=== PATIENT | female | born 1990 | race Caucasian/White ===

== ENCOUNTER 2020-11-08 02:50 | Emergency (ER) | payer OTHER ==
[~2020-11-08] VITALS: Ht 165.1 cm; Wt 68.0 kg
[2020-11-08 02:56] VITALS: BP 109/72
[2020-11-08] MEDS ORDERED: KLONOPIN1 MG PO ×3 (03:01→03:40)
[2020-11-08] MEDS ORDERED: PROPRANOLOL 1010 M1 PO (03:02)
== END 2020-11-08 03:44 | disposition home or self-care (01) ==
LOC: ER 02:50
DX: F41.9 Anxiety disorder, unspecified (principal); Z76.0 Encounter for issue of repeat prescription; Z98.890 Other specified postprocedural states; Z79.899 Other long term (current) drug therapy; Z88.5 Allergy status to narcotic agent; Z88.0 Allergy status to penicillin

== ENCOUNTER 2020-11-26 06:34 | Emergency (ER) | payer OTHER ==
[~2020-11-26] VITALS: Ht 165.1 cm; Wt 68.0 kg
[~2020-11-26 06:34] MED LIST: KLONOPIN1 MG PO; PROPRANOLOL 1010 M1 PO
[2020-11-26 07:38] LABS: ABSOLUTE NEUTROPHILS 5.7 thou/uL (1.4-8.2); BASOPHILS 0.6 % (0.0-2.0); EOSINOPHILS 1.8 % (0.0-3.0); HEMATOCRIT 36.2 % (37.0-47.0); LYMPHOCYTES 30.7 % (24.0-44.0); MCH 29.6 pg (26.0-34.0); MCHC 33.1 g/dL (28.0-37.0); MCV 89.6 fL (80.0-100.0); MONOCYTES 8.7 % (1.0-8.0); PLATELET COUNT 307 thou/uL (150-400); POLYS 58.2 % (36.0-66.0); RBC 4.04 mil/uL (4.20-5.00); RDW 13.8 % (10.5-14.5); WBC 9.7 thou/uL (4.0-11.0)
[2020-11-26 08:06] LABS: ALBUMIN 3.2 g/dL (3.4-5.0); CALCIUM 7.4 mg/dL (8.5-10.1); CREATININE 0.5 mg/dL (0.6-1.0); TOTAL BILIRUBIN 0.3 mg/dL (0.2-1.0)
[2020-11-26 08:11] LABS: POTASSIUM 2.3 mmol/L (3.5-5.1)
[2020-11-26 08:27] LABS: TOTAL PROTEIN 6.1 g/dL (6.4-8.2)
[2020-11-26 09:00] VITALS: BP 103/72
--- NOTE | 2020-11-26 13:54 | EKG ---
[address] [address] ELECTROCARDIOGRAM REPORT Name: BLAIR AMAYA Room #: [facility] Mena#: [id number] Admission: 11/26/20 Attend Phys: Discharge: 11/26/20 Date of : [birth year] Report #: [id number] [facility] ED Test Date: 2020-11-26 Test Time: 06:40:20 Pat Name: BLAIR AMAYA Department: Room: Gender: F [employer] Erector: DEE : 1990 Requested By: Zak Medina Order Number: [id number] MD: Guanaco Mendoza Measurements Intervals [place] Rate: 115 P: 77 ND: 136 QRS: 71 QRSD: 82 T: -20 QT: 317 QTc: 439 Interpretive Statements Sinus tachycardia Borderline repolarization abnormality No previous ECG available for comparison Electronically Signed On 11-26-2020 13:54:06 CDT by Guanaco Mendoza [email or web address] <ELECTRONICALLY SIGNED> By: Guanaco Mendoza MD, [facility] 11/26/20 1354 [id number] 0640 Guanaco Mendoza MD, FACC /EPI
== END 2020-11-26 09:35 | disposition home or self-care (01) ==
LOC: ER 06:34
PROVIDERS: Emergency Medicine
DX: R07.89 Other chest pain (principal); E87.6 Hypokalemia; F41.9 Anxiety disorder, unspecified; I25.2 Old myocardial infarction; E78.5 Hyperlipidemia, unspecified; I10 Essential (primary) hypertension; E11.9 Type 2 diabetes mellitus without complications; Z98.890 Other specified postprocedural states; Z79.899 Other long term (current) drug therapy; Z88.5 Allergy status to narcotic agent; Z88.0 Allergy status to penicillin; Z87.891 Personal history of nicotine dependence

== ENCOUNTER 2021-04-26 20:32 | Emergency (ER) | payer OTHER ==
[~2021-04-26] VITALS: Ht 165.1 cm; Wt 63.5 kg
[2021-04-26] MEDS ORDERED: KEPPRA750 MG PO ×2 (20:43→21:25)
[2021-04-26] MEDS ORDERED: CLONAZEPAM 0.50.5 M1 PO (21:25)
[2021-04-26 21:43] VITALS: BP 106/72
[2021-04-27] MEDS ORDERED: KEPPRA750 MG PO (14:04)
[2021-04-27] MEDS ORDERED: CLONAZEPAM 0.50.5 M1 PO (14:04)
== END 2021-04-26 21:43 | disposition home or self-care (01) ==
LOC: ER 20:32
DX: R56.9 Unspecified convulsions (principal); Z76.0 Encounter for issue of repeat prescription; F41.9 Anxiety disorder, unspecified; Z98.890 Other specified postprocedural states; Z79.899 Other long term (current) drug therapy; Z88.5 Allergy status to narcotic agent; Z88.0 Allergy status to penicillin

== ENCOUNTER 2021-04-28 23:39 | Emergency (ER) | payer OTHER ==
[~2021-04-28] VITALS: Ht 165.1 cm; Wt 63.5 kg
[~2021-04-28 23:39] MED LIST changes: +CLONAZEPAM 0.50.5 M1 PO; +KEPPRA750 MG PO
[2021-04-29 00:58] VITALS: BP 102/56
== END 2021-04-29 00:58 | disposition home or self-care (01) ==
LOC: ER 23:39
DX: R56.9 Unspecified convulsions (principal); F41.9 Anxiety disorder, unspecified; Z79.899 Other long term (current) drug therapy; Z88.0 Allergy status to penicillin; Z88.5 Allergy status to narcotic agent

== ENCOUNTER 2021-04-29 20:23 | Emergency (ER) | payer OTHER ==
[~2021-04-29] VITALS: Ht 165.1 cm; Wt 63.5 kg
--- NOTE | ~2021-04-29 | EMS ---
[address] [address] EMS Patient Care Report Name: BLAIR DENSON Room #: [facility] TERESA Mena#: [id number] Admission: 04/29/21 Attend Phys: Discharge: 04/29/21 Date of : [birth year] Report #: [id number] THIS REPORT FOR: //name// Report Transmitted: 04/29/2021 21:15 EMS Care Summary [facility] MED-ACT Incident [id number] @ 04/29/2021 19:47 Incident Location [address] [place] [address] Patient BLAIR DENSON Female, 30 Years 1990 Patient Address [address] [place] [address] Patient History Epilepsy,Anxiety Disorder (Panic Attacks),Anxiety, Patient Allergies Penicillin allergy,Morphine, Patient Medications Keppra, Clonazepam, Chief Complaint "feeling like I'm going to have a seizure" Disposition Transported No Lights/[place] Reason Convulsions/Seizure Transported To [facility] Narrative M1141 called to above address for C3 Seizures. Upon arrival the pt walked up to the ambulance to meet us. Pt did not appear in distress. Assisted pt in walking into ambulance and sitting in captains chair. Started gathering pt information [address] [address] EMS Patient Care Report Name: BLAIR DENSON [facility] [id number] Admission: 04/29/21 Attend Phys: Discharge: 04/29/21 Date of : [birth year] Report #: [id number] and history while assessing vitals and gathering twelve lead. Started transport to [facility]. Biocom; hospital requested IV with administration of 1mg Ativan, informed hospital we do not carry Ativan but have Versed, hospital copied with IV access request and room assignment on arrival. Attempted to gain IV access and reassessed vitals en route. Arrived to hospital, walked pt inside to triage, gave triage nurse report and transferred care. Pt states she has been out of her medication for a day. Pt states she went to fill her prescription but was told it wouldn't be ready to machine pecan picker until tomorrow. States her last seizure was three weeks ago. Pt states she normally feels anxious before she has a seizure, which is how she is feeling right now. Pt states she is having chest pain and feeling slightly short of breath which is normal with her anxiety. Initial Vitals @20:15P: 186,SpO2: 100, @20:06P: 107,R: 18,Pain: 0/10,GCS: 15,SpO2: 100,[place] Suspected: false @20:16P: 101,R: 16,BP: 144/73,Pain: 0/10,GCS: 15,Revised Trauma: 12, @20:02P: 124,R: 18,BP: 127/83,Pain: 0/10,GCS: 15,Temp: 97.5F,SpO2: 99,Revised Trauma: 12, Impression Anxiety reaction/Emotional upset Procedures @20:06 12-Lead ECG @20:11 IV Therapy - cc (20 ga) Site: Antecubital-Right Response: UnchangedFailed Timeline 19:45,Call Received 19:45,Psap Call 19:47,Dispatched 19:48,En Route 19:59,On Scene 20:00,At Patient 20:02,BP: 127/83 M,PULSE: 124,RR: 18 R,SPO2: 99 Ox,ETCO2: ,BG: ,PAIN: 0,GCS: 15, 20:06,12-Lead ECG, 20:06,BP: / M,PULSE: 107,RR: 18 R,SPO2: 100 Ox,ETCO2: ,BG: ,PAIN: 0,GCS: 15, 20:09,Depart Scene 20:11,IV Therapy - cc 20 ga Site: Antecubital-Right,Response: UnchangedFailed, 20:15,BP: / M,PULSE: 186,RR: R,SPO2: 100 Ox,ETCO2: ,BG: ,PAIN: ,GCS: , [address] [address] EMS Patient Care Report Name: BLAIR DENSON Room #: [facility] Rajesh#: [id number] Admission: 04/29/21 Attend Phys: Discharge: 04/29/21 Date of : [birth year] Report #: [id number] 20:16,BP: 144/73 M,PULSE: 101,RR: 16 R,SPO2: Ox,ETCO2: ,BG: ,PAIN: 0,GCS: 15, 20:18,At Destination 20:28,Call Closed Disclaimer v1.1 Copyright 2021 [employer] This EMS Care Summary contains data elements from the applicable legal record (which may be displayed differently). It is designed to provide pertinent information for the following purposes: continuity of care, clinical quality, and state data reporting. The complete legal record is available to ED staff and administrators of the receiving hospital in [employer] Patient Tracker. All data is provided "as is."
--- NOTE | ~2021-04-29 | EMS ---
[address] [address] EMS Patient Care Report Name: BLAIR DENSON Room #: DEP TERESA Mena#: [id number] Admission: 04/29/21 Attend Phys: Discharge: 04/29/21 Date of : [birth year] Report #: [id number] THIS REPORT FOR: //name// Report Transmitted: 04/29/2021 22:18 EMS Care Summary [facility] MED-ACT Incident [id number] @ 04/29/2021 19:47 Incident Location [address] [place] [address] Patient BLAIR DENSON Female, 30 Years 1990 Patient Address [address] [place] [address] Patient History Epilepsy,Anxiety Disorder (Panic Attacks),Anxiety, Patient Allergies Penicillin allergy,Morphine, Patient Medications Keppra, Clonazepam, Chief Complaint "feeling like I'm going to have a seizure" Disposition Transported No Lights/[place] Reason Convulsions/Seizure Transported To [facility] Narrative M1141 called to above address for C3 Seizures. Upon arrival the pt walked up to the ambulance to meet us. Pt did not appear in distress. Assisted pt in walking into ambulance and sitting in captains chair. Started gathering pt information [address] [address] EMS Patient Care Report Name: BLAIR DENSON [facility] [id number] Admission: 04/29/21 Attend Phys: Discharge: 04/29/21 Date of : [birth year] Report #: [id number] and history while assessing vitals and gathering twelve lead. Started transport to [facility]. Biocom; hospital requested IV with administration of 1mg Ativan, informed hospital we do not carry Ativan but have Versed, hospital copied with IV access request and room assignment on arrival. Attempted to gain IV access and reassessed vitals en route. Arrived to hospital, walked pt inside to triage, gave triage nurse report and transferred care. Pt states she has been out of her medication for a day. Pt states she went to fill her prescription but was told it wouldn't be ready to bulk picker until tomorrow. States her last seizure was three weeks ago. Pt states she normally feels anxious before she has a seizure, which is how she is feeling right now. Pt states she is having chest pain and feeling slightly short of breath which is normal with her anxiety. Initial Vitals @20:15P: 186,SpO2: 100, @20:06P: 107,R: 18,Pain: 0/10,GCS: 15,SpO2: 100,[place] Suspected: false @20:16P: 101,R: 16,BP: 144/73,Pain: 0/10,GCS: 15,Revised Trauma: 12, @20:02P: 124,R: 18,BP: 127/83,Pain: 0/10,GCS: 15,Temp: 97.5F,SpO2: 99,Revised Trauma: 12, Impression Anxiety reaction/Emotional upset Procedures @20:06 12-Lead ECG @20:11 IV Therapy - cc (20 ga) Site: Antecubital-Right Response: UnchangedFailed Timeline 19:45,Call Received 19:45,Psap Call 19:47,Dispatched 19:48,En Route 19:59,On Scene 20:00,At Patient 20:02,BP: 127/83 M,PULSE: 124,RR: 18 R,SPO2: 99 Ox,ETCO2: ,BG: ,PAIN: 0,GCS: 15, 20:06,12-Lead ECG, 20:06,BP: / M,PULSE: 107,RR: 18 R,SPO2: 100 Ox,ETCO2: ,BG: ,PAIN: 0,GCS: 15, 20:09,Depart Scene 20:11,IV Therapy - cc 20 ga Site: Antecubital-Right,Response: UnchangedFailed, 20:15,BP: / M,PULSE: 186,RR: R,SPO2: 100 Ox,ETCO2: ,BG: ,PAIN: ,GCS: , [facility] [address] [place] [address] EMS Patient Care Report Name: BLAIR DENSON Room #: [facility] Rajesh#: [id number] Admission: 04/29/21 Attend Phys: Discharge: 04/29/21 Date of : [birth year] Report #: [id number] 20:16,BP: 144/73 M,PULSE: 101,RR: 16 R,SPO2: Ox,ETCO2: ,BG: ,PAIN: 0,GCS: 15, 20:18,At Destination 20:28,Call Closed Disclaimer v1.1 Copyright 2021 [employer] This EMS Care Summary contains data elements from the applicable legal record (which may be displayed differently). It is designed to provide pertinent information for the following purposes: continuity of care, clinical quality, and state data reporting. The complete legal record is available to ED staff and administrators of the receiving hospital in [employer]s Patient Tracker. All data is provided "as is."
[2021-04-29 21:05] VITALS: BP 114/66
== END 2021-04-29 21:06 | disposition home or self-care (01) ==
LOC: ER 20:23
DX: F41.9 Anxiety disorder, unspecified (principal); Z98.890 Other specified postprocedural states; Z79.899 Other long term (current) drug therapy; Z88.5 Allergy status to narcotic agent; Z88.0 Allergy status to penicillin